=== PATIENT | male | born 1960 | race Caucasian/White ===

== ENCOUNTER → 2024-01-19 12:09 | Outpatient (REF) | payer OTHER, SELFPAY | LOC: MRI 12:09 | PROVIDERS: ATTENDING PHYSICIAN Ophthalmology; FAMILY PHYSICIAN Family Medicine | DX: H49.20 Sixth [abducent] nerve palsy, unspecified eye (principal) | CPT/HCPCS: 70553; A9575 ==

== ENCOUNTER → 2024-03-13 13:35 | Outpatient (REF) | payer OTHER, SELFPAY | LOC: HWRAD 13:35 | PROVIDERS: ATTENDING PHYSICIAN Nurse Practitioner Family | DX: R10.11 Right upper quadrant pain (principal); R19.00 Intra-abdominal and pelvic swelling, mass and lump, unspecified site | CPT/HCPCS: 76700 ==